=== PATIENT | male | born 1965 | race Caucasian/White ===

== ENCOUNTER 2023-12-24 14:44 | Outpatient (CLI) | payer BC, SELFPAY | END 2023-12-24 14:45 | disposition home or self-care (01) | LOC: INJ CL 14:47 | PROVIDERS: Visit Provider Family Medicine | DX: M17.11 Unilateral primary osteoarthritis, right knee (principal); M25.561 Pain in right knee | CPT/HCPCS: 64454 ==

== ENCOUNTER 2024-01-07 13:23 | Outpatient (CLI) | payer BC, SELFPAY | END 2024-01-07 13:24 | disposition home or self-care (01) | LOC: INJ CL 13:23 | PROVIDERS: PCP Family Medicine; Visit Provider Family Medicine | DX: M17.11 Unilateral primary osteoarthritis, right knee (principal); M25.561 Pain in right knee | CPT/HCPCS: 64624 ==